=== PATIENT | female | born 1970 ===

== ENCOUNTER 2016-12-13 13:02 | Emergency (ER) | payer OTHER ==
[2016-12-13] MEDS ORDERED: ONDANSETRON 4 MG VIAL ONE ×2 (15:43→19:26)
[2016-12-13] MEDS ORDERED: SODIUM CHLORIDE 0.9% 1,000 ML ONE ×2 (15:43→18:01)
[2016-12-13] MEDS ORDERED: DICYCLOMINE 20MG/2ML VIAL IM ONE (18:01)
[2016-12-13] MEDS ORDERED: CEFTRIAXONE 1 GM VIAL ONE (19:20)
[2016-12-13] MEDS ORDERED: SODIUM CHLORIDE 0.9% 100 ML IV ONE (19:20)
== END 2016-12-13 19:53 | disposition home or self-care (01) ==
LOC: ER 13:02
DX: N39.0 Urinary tract infection, site not specified (principal); R19.7 Diarrhea, unspecified; Z79.899 Other long term (current) drug therapy; F17.210 Nicotine dependence, cigarettes, uncomplicated
CPT/HCPCS: 36415; 80053; 81001; 83630; 83690; 84703; 85025; 87045; 87046; 87088; 87177; 87493; 96361; 96365; 96372; 96375; 96376